=== PATIENT | male | born 1975 | race Hispanic/Latino ===

== ENCOUNTER 2017-06-17 22:44 | Observation (INO) | payer OTHER ==
[~2017-06-17] VITALS: Ht 165.1 cm; Wt 54.0 kg
[~2017-06-17 22:44] MED LIST: ADVAIR DISK1 IN; AMOXICILLIN875 MG OR; BACTROBAN2 % EX; CEPHALEXIN500 MG OR; LORTAB 10 OR; LORTAB 5 OR; PENICILLN VK500 MG PO; PROAIR HFA IN; SYMBICORT1 AE1 IN; VENTOLIN HFA IN; ZITHROMAX250 MG PO
--- NOTE | 2017-06-17 23:03 | NUR ---
PT STATED DURING TRIAGE THAT HE DRANK 8 BEERS TODAY. ASKED IF IT MADE PAIN BETTER OR WORSE, PT STATED BETTER.
[2017-06-17 23:11] LABS: HEMATOCRIT 42.4 % (39.0-50.0); HEMOGLOBIN 14.7 g/dl (14.0-18.0); IMMATURE GRANULOCYTES 0.5 % (0.0-1.0); MEAN CELL VOLUME 97.9 fL CALC (80.0-100.0); MEAN CORPUSCULAR HGB 33.9 pG CALC (26.0-32.0); MEAN CORPUSCULAR HGB CONC 34.7 g/L CALC (32.0-36.0); NEUT# 4.65 thou/uL (1.82-7.42); RED BLOOD COUNT 4.33 mill/uL (4.70-6.10); RED CELL DISTRI WIDTH 12.2 % (11.5-15.5)
[2017-06-17 23:23] LABS: ALBUMIN 4.7 g/dL (3.2-5.0); ALKALINE PHOSPHATASE 88 u/l (38-126); AMYLASE 115 u/l (30-110); ANION GAP 20 (6-22 (CALC)); BILIRUBIN, TOTAL 0.4 mg/dL (0.0-1.4); BUN 6 mg/dL (9-20); BUN/CREATININE RATIO 10 (12-20 (CALC)); CALCIUM 9.1 mg/dL (8.4-10.2); CARBON DIOXIDE 20 mmol/l (22-30); CHLORIDE 102 mmol/l (95-108); CREATININE 0.7 mg/dL (0.7-1.3); GFR > 60 ML/MIN (>=60 (CALC)); GFR FOR AFR.AMER. > 60 ML/MIN (>=60 (CALC)); GLUCOSE 97 mg/dL (75-110); LIPASE 210 u/l (23-300); POTASSIUM 3.6 mmol/l (3.5-5.1); SGOT/AST 70 u/l (17-59); SGPT/ALT 55 u/l (21-72); SODIUM 138 mmol/l (137-146); TOTAL PROTEIN 8.2 g/dL (6.3-8.2)
[2017-06-17 23:36] LABS: MYOGLOBIN 19 ng/mL (0 - 121)
--- NOTE | 2017-06-17 23:36 | NUR ---
FAMILY AT BEDSIDE. WAITING ON RESULTS.
[2017-06-17 23:45] LABS: URINE BILIRUBIN - DIPSTICK NEGATIVE (NEGATIVE); URINE BLOOD DIPSTICK NEGATIVE (NEGATIVE); URINE CLARITY CLEAR; URINE COLOR YELLOW; URINE GLUCOSE - DIPSTICK NEGATIVE (NEGATIVE); URINE KETONE NEGATIVE (NEGATIVE); URINE LEUK ESTERASE NEGATIVE (NEGATIVE); URINE NITRITE - DIPSTICK NEGATIVE (Negative); URINE PH 5.5 (4.5-8.0); URINE PROTEIN - DIPSTICK NEGATIVE (NEG-TRACE); URINE SPECIFIC GRAVITY <=1.005; URINE UROBILINOGEN - DIPSTICK 0.2 E.U./dL (0.2)
[2017-06-17 23:54] LABS: BARBITURATES NEGATIVE (NEGATIVE); COCAINE NEGATIVE (NEGATIVE); METHADONE NEGATIVE (NEGATIVE); OXCYCODONE NEGATIVE (NEGATIVE); TETRAHYDROCANNABIONOL NEGATIVE (NEGATIVE); TRICYLIC ANTIDEPRESSANTS NEGATIVE (NEGATIVE)
--- NOTE | 2017-06-18 00:42 | NUR ---
DR CERVANTES IN TO GO OVER RESULTS AND PLAN OF ADMIT FOR OBSERVATION.
--- NOTE | 2017-06-18 00:50 | NUR ---
ADMIT ORDERS RECIEVED.
--- NOTE | 2017-06-18 01:27 | NUR ---
STILL WAITING ON FLOOR FOR BED ASSIGNMENT.
--- NOTE | 2017-06-18 01:31 | NUR ---
REPORT GIVEN TO DELVIN ALLEN
--- NOTE | 2017-06-18 01:35 | NUR ---
PT TRANSPORTED TO FLOOR BY DELVIN ABDULLAHI.
--- NOTE | 2017-06-18 02:15 | NUR ---
PATIENT ADMITTED FROM ER VIA WHEELCHAIR WITH ER STAFF IN ATTENDANCE. PATIENT ASSISTED TO BED. PATIENT IS AWAKE ALERT AND ORIENTEDX3. PATIENT ADMITTED FOR CHEST PAIN BUT DENIES ANY CHEST PAIN AT THIS TIME. PATIENT DENIES ANY ALLERGIES. PATIENT WITH IV SITE TO RIGHT FOREARM-IVF NS HUNG AND INFUSING AT 125CC/HR. SITE APPEARS HEALTHY AT THIS TIME. PATIENT PROVIDED WITH SANDWICH AND DRINK. PATIENT ORIENTED TO ROOM AND SURROUNDINGS. INSTRUCTED ON US OF NURSE CALL LIGHT SYSTEM AND TV REMOTE. SAFETY PRECAUTIONS REVIEWED WITH PATIENT. CALL LIGHT IN REACH. WILL CONT TO MONITOR.
--- NOTE | 2017-06-18 05:30 | NUR ---
PATIENT APPEARS SLEEPING AT THIS TIME IN NO ACUTE DISTRESS WITH EYES CLOSED. CALL LIGHT IN REACH. WILL CONT TO MONITOR.
[2017-06-18 09:14] VITALS: BP 102/60
--- NOTE | 2017-06-18 11:28 | NUR ---
PT.DISCHARGED, SELF AMBULATED OFF THE FLOOR ACCOMPANIED BY FAMILY IN GOOD CONDITION
[2017-06-18] MEDS ORDERED: ZPAK PO (12:19)
[2017-06-18] MEDS ORDERED: ZANTAC 150 MAX150 MG PO (12:19)
== END 2017-06-18 11:25 | disposition home or self-care (01) | DRG 313 ==
LOC: ED 22:44 → ED-I 06-18 00:31 → ED 06-18 00:48 → MS2 06-18 00:49
PROVIDERS: Emergency Medicine; ADMIT Internal Medicine; ATTEND Internal Medicine
DX: R07.2 Precordial pain (principal); J44.9 Chronic obstructive pulmonary disease, unspecified; F10.129 Alcohol abuse with intoxication, unspecified; F17.210 Nicotine dependence, cigarettes, uncomplicated; Z91.14 Patient's other noncompliance with medication regimen
CPT/HCPCS: G0378